=== PATIENT | male | born 1970 | race Caucasian/White ===

== ENCOUNTER 2021-05-28 09:40 | Inpatient (IN) | payer OTHER ==
[2021-05-28] MEDS ORDERED: SODIUM CHLORIDE 0.9% 1,000 ML IV STA (10:09)
[2021-05-28] MEDS ORDERED: AMPICILLIN-SULBACTAM 3 GM in SODIUM CHLORIDE 0.9% 100 ML IVPB STA (10:09)
[2021-05-28] MEDS ORDERED: SODIUM CHLORIDE 0.9% 2,000 ML IV STA (10:09)
--- NOTE | 2021-05-28 10:21 | ED ---
General Adult HPI - General Source: patient, RN notes reviewed Mode of arrival: ambulatory Limitations: no limitations <Jony Casillas - Last Filed: 05/28/21 12:22> <Paige Medina - Last Filed: 05/28/21 23:13> - General Chief complaint: Extremity Injury, Lower Stated complaint: Cellulitis Lower left leg Time Seen by Provider: 05/28/21 10:06 - History of Present Illness Initial comments: 50-year-old male presents to the emergency room for a chief complaint of infection of the left leg. Patient states that prior the past 5 days he has had some numbness of the left leg. States it has been worsening. Patient states it is weeping. He has not had fevers. He went to urgent care today and was sent to the emergency room. He denies any history of diabetes.Patient has no other complaints at this time including shortness of breath, chest pain, abdominal pain, nausea or vomiting, headache, or visual changes. (Joyn Casillas) - Related Data Home Medications Medication Instructions Recorded Confirmed No Known Home Medications 05/28/21 05/28/21 Allergies Allergy/AdvReac Type Severity Reaction Status Date / Time No Known Allergies Allergy Verified 05/28/21 09:48 Review of Systems ROS Other: All systems not noted in ROS Statement are negative. <Jony Casillas - Last Filed: 05/28/21 12:22> ROS Other: All systems not noted in ROS Statement are negative. <Paige Medina - Last Filed: 05/28/21 23:13> ROS Statement: Those systems with pertinent positive or pertinent negative responses have been documented in the HPI. Past Medical History Past Medical History: No Reported History History of Any Multi-Drug Resistant Organisms: None Reported Past Surgical History: No Surgical Hx Reported Past Psychological History: No Psychological Hx Reported Smoking Status: Never smoker Past Alcohol Use History: None Reported, Daily, Occasional Past Drug Use History: None Reported <Jony Casillas - Last Filed: 05/28/21 12:22> General Exam Limitations: no limitations General appearance: alert, in no apparent distress Head exam: Present: atraumatic Eye exam: Present: normal appearance, PERRL, EOMI. Absent: scleral icterus, conjunctival injection ENT exam: Present: normal exam, mucous membranes moist Neck exam: Present: normal inspection, full ROM. Absent: tenderness Respiratory exam: Present: normal lung sounds bilaterally. Absent: respiratory distress, wheezes Cardiovascular Exam: Present: regular rate, normal rhythm, normal heart sounds GI/Abdominal exam: Present: soft, normal bowel sounds. Absent: distended, tenderness Extremities exam: Present: full ROM (Full range of motion of the left lower extremity including hip knee and ankle joint), normal capillary refill (cap refill less than 2 seconds of lower extremity), other (Erythema with some purulent drainage extending from the left ankle up to the left thigh) <Jony Casillas - Last Filed: 05/28/21 12:22> Course Vital Signs 05/28/21 05/28/21 05/28/21 09:49 14:00 20:00 Temperature 99.2 F 99.7 F H 99.0 F Pulse Rate 98 Pulse Rate [ 110 H 89 Pulse Oximetery ] Respiratory 18 18 17 Rate Blood Pressure 187/115 Blood Pressure 182/85 160/71 [Left Arm] O2 Sat by Pulse 96 90 L 93 L Oximetry Medical Decision Making - Lab Data Result diagrams: 05/28/21 09:51 05/28/21 09:51 <Jony Casillas - Last Filed: 05/28/21 12:22> - Lab Data Result diagrams: 05/28/21 09:51 05/28/21 09:51 <Paige Medina - Last Filed: 05/28/21 23:13> - Medical Decision Making vitals are stable. Patient mildly hypertensive, does not have any symptoms. Afebrile. Physical exam reveals a profound cellulitis of the left lower extremity. CBC does show white blood cell count of 10. CMP is unremarkable. Lactic acid is normal. COVID-19 is negative. X-ray shows no abnormalities of the overlying soft tissue or bone. pt was started on Unasyn and vancomycin. Patient will be admitted to Dr. Dhaliwal's group. He does request that Dr. Dent be consulted. (Jony Casillas) I was available for consultation in the emergency department. The history and physical exam were done by the midlevel provider. I was consulted for this patients care. I reviewed the case with the midlevel provider and based on their presentation of the patient, I agree with the assessment, medical decision making and plan of care as documented. Chart was dictated using Perfect dictation software. Attempts were made to correct any dictation errors however some typographical errors may persist. Patient was seen during a national state of emergency due to the Covid-19 pandemic. (Paige Medina) - Lab Data Lab Results 05/28/21 05/28/21 05/28/21 Range/Units 09:51 09:51 09:51 WBC 10.0 (3.8-10.6) k/uL RBC 4.21 L (4.30-5.90) m/uL Hgb 12.1 L (13.0-17.5) gm/dL Hct 39.4 (39.0-53.0) % MCV 93.6 (80.0-100.0) fL MCH 28.6 (25.0-35.0) pg MCHC 30.6 L (31.0-37.0) g/dL RDW 14.2 (11.5-15.5) % Plt Count 390 (150-450) k/uL MPV 7.3 Neutrophils % 77 % Lymphocytes % 15 % Monocytes % 4 % Eosinophils % 2 % Basophils % 1 % Neutrophils # 7.7 (1.3-7.7) k/uL Lymphocytes # 1.5 (1.0-4.8) k/uL Monocytes # 0.4 (0-1.0) k/uL Eosinophils # 0.2 (0-0.7) k/uL Basophils # 0.1 (0-0.2) k/uL Hypochromasia Slight D-Dimer (<0.60) mg/L FEU Sodium 138 (137-145) mmol/L Potassium 4.0 (3.5-5.1) mmol/L Chloride 99 (98-107) mmol/L Carbon Dioxide 32 H (22-30) mmol/L Anion Gap 7 mmol/L BUN 12 (9-20) mg/dL Creatinine 0.92 (0.66-1.25) mg/dL Est GFR (CKD-EPI)AfAm >90 (>60 ml/min/1.73 sqM) Est GFR (CKD-EPI)NonAf >90 (>60 ml/min/1.73 sqM) Glucose 123 H (74-99) mg/dL Plasma Lactic Acid Hai 1.9 (0.7-2.0) mmol/L Calcium 8.4 (8.4-10.2) mg/dL Total Bilirubin 0.5 (0.2-1.3) mg/dL AST 118 H (17-59) U/L ALT 204 H (4-49) U/L Alkaline Phosphatase 159 H (38-126) U/L C-Reactive Protein 25.0 H (<1.0) mg/dL Total Protein 7.2 (6.3-8.2) g/dL Albumin 3.1 L (3.5-5.0) g/dL Coronavirus (PCR) (Not Detectd) 05/28/21 05/28/21 Range/Units 10:20 12:41 WBC (3.8-10.6) k/uL RBC (4.30-5.90) m/uL Hgb (13.0-17.5) gm/dL Hct (39.0-53.0) % MCV (80.0-100.0) fL MCH (25.0-35.0) pg MCHC (31.0-37.0) g/dL RDW (11.5-15.5) % Plt Count (150-450) k/uL MPV Neutrophils % % Lymphocytes % % Monocytes % % Eosinophils % % Basophils % % Neutrophils # (1.3-7.7) k/uL Lymphocytes # (1.0-4.8) k/uL Monocytes # (0-1.0) k/uL Eosinophils # (0-0.7) k/uL Basophils # (0-0.2) k/uL Hypochromasia D-Dimer 1.68 H (<0.60) mg/L FEU Sodium (137-145) mmol/L Potassium (3.5-5.1) mmol/L Chloride (98-107) mmol/L Carbon Dioxide (22-30) mmol/L Anion Gap mmol/L BUN (9-20) mg/dL Creatinine (0.66-1.25) mg/dL Est GFR (CKD-EPI)AfAm (>60 ml/min/1.73 sqM) Est GFR (CKD-EPI)NonAf (>60 ml/min/1.73 sqM) Glucose (74-99) mg/dL Plasma Lactic Acid Hai (0.7-2.0) mmol/L Calcium (8.4-10.2) mg/dL Total Bilirubin (0.2-1.3) mg/dL AST (17-59) U/L ALT (4-49) U/L Alkaline Phosphatase (38-126) U/L C-Reactive Protein (<1.0) mg/dL Total Protein (6.3-8.2) g/dL Albumin (3.5-5.0) g/dL Coronavirus (PCR) Not Detected (Not Detectd) Disposition Is patient prescribed a controlled substance at d/c from ED?: No Time of Disposition: 12:24 <Jony Casillas P - Last Filed: 05/28/21 12:22> <Paige Medina - Last Filed: 05/28/21 23:13> Clinical Impression: Cellulitis, Transaminitis, Elevated C-reactive protein (CRP) Disposition: ADMITTED IP TO THIS HOSP
[2021-05-28 10:32] LABS: Basophils # (A) 0.1 k/uL (0-0.2); Basophils % (A) 1 %; Eosinophils # (A) 0.2 k/uL (0-0.7); Eosinophils % (A) 2 %; HCT 39.4 % (39.0-53.0); HGB 12.1 gm/dL (13.0-17.5); Hypochromasia Slight; Lymphocytes # (A) 1.5 k/uL (1.0-4.8); Lymphocytes % (A) 15 %; MCH 28.6 pg (25.0-35.0); MCHC 30.6 g/dL (31.0-37.0); MCV 93.6 fL (80.0-100.0); Mean Platelet Volume 7.3; Monocytes # (A) 0.4 k/uL (0-1.0); Monocytes % (A) 4 %; Neutrophils # (A) 7.7 k/uL (1.3-7.7); Neutrophils % (A) 77 %; Platelet Count 390 k/uL (150-450); RBC 4.21 m/uL (4.30-5.90); RDW 14.2 % (11.5-15.5)
[2021-05-28 11:05] LABS: ALT 204 U/L (4-49); AST 118 U/L (17-59); African American GFR (CKD) >90 (>60 ml/min/1.73 sqM); Albumin 3.1 g/dL (3.5-5.0); Alkaline Phosphatase 159 U/L (38-126); Anion Gap 7 mmol/L; Blood Urea Nitrogen 12 mg/dL (9-20); Calcium 8.4 mg/dL (8.4-10.2); Carbon Dioxide 32 mmol/L (22-30); Chloride 99 mmol/L (98-107); Glucose 123 mg/dL (74-99); Non-African American GFR(CKD) >90 (>60 ml/min/1.73 sqM); Sodium 138 mmol/L (137-145); Total Bilirubin 0.5 mg/dL (0.2-1.3); Total Protein 7.2 g/dL (6.3-8.2)
--- NOTE | 2021-05-28 11:14 | XR ---
EXAMINATION TYPE: XR tibia fibula LT DATE OF EXAM: 05/28/2021 CLINICAL HISTORY: pain TECHNIQUE: AP and lateral images of the left tibia and fibula are obtained. COMPARISON: None. FINDINGS: There is no acute fracture/dislocation evident. The joint spaces appear within normal cummins its. Soft tissue edema may reflect underlying cellulitis. No radiopaque foreign body identified. IMPRESSION: There is no acute fracture or dislocation seen. ICD 10 NO FRACTURE, INITIAL EVALUATION
--- NOTE | 2021-05-28 11:15 | XR ---
EXAMINATION TYPE: XR femur LT DATE OF EXAM: 05/28/2021 CLINICAL HISTORY: pain TECHNIQUE: Two views of the left femur are obtained. COMPARISON: None. FINDINGS: There is no acute fracture or dislocation seen of the femur. The hip and knee joints mariela ear narrowed. The overlying soft tissue appears unremarkable. IMPRESSION: There is no acute fracture or dislocation seen of the femur. ICD 10 NO FRACTURE, INITIAL EVALUATION
[2021-05-28] MEDS ORDERED: ACETAMINOPHEN TAB 325 MG TAB PO PRN (12:24)
[2021-05-28] MEDS ORDERED: NALOXONE 0.4 MG/ML 1 ML VIAL IV PRN (12:24)
[2021-05-28] MEDS ORDERED: VANCOMYCIN IV PER PHARMACY 1 EACH MISC MISCELLANE PRN (12:25)
[2021-05-28] MEDS ORDERED: VANCOMYCIN 2,500 MG in SODIUM CHLORIDE 0.9% 500 ML 500 ML IVPB STA (12:30)
--- NOTE | 2021-05-28 13:14 | US ---
EXAMINATION TYPE: US venous doppler duplex LE DATE OF EXAM: 05/28/2021 1:05 PM COMPARISON: NONE CLINICAL HISTORY: redness, pain, swelling. Severe redness left leg SIDE PERFORMED: Bilateral TECHNIQUE: The lower extremity deep venous system is examined utilizing real time linear array sonog reilly with graded compression, doppler sonography and color-flow sonography. VESSELS IMAGED: Common Femoral Vein Deep Femoral Vein Greater Saphenous Vein * Femoral Vein Popliteal Vein Small Saphenous Vein * Proximal Calf Veins (* superficial vessels) Very limited due to body habitus, Left Distal Femoral Vein and left prox pop vein not visualized. Right Leg: Negative for DVT Left Leg: No obvious DVT seen IMPRESSION: No evidence of DVT at this time.
--- NOTE | 2021-05-28 13:39 | P.GSCN ---
History of Present Illness Consult date: 05/28/21 History of present illness: Shakir is a 50-year-old morbidly obese male who presents to the ER with left lower extremity pain cellulitic changes. 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 He said he woke up the next day with some increasing redness of his left leg and has progressively gotten worse since then he presents for this. He denies any fevers, chills, nausea, vomiting or issues otherwise. He denies any issues like this in the past. He denies any lower extremity pain or difficulty with ambulation prior to the onset of this Past Medical History Past Medical History: No Reported History History of Any Multi-Drug Resistant Organisms: None Reported Past Surgical History: No Surgical Hx Reported Past Psychological History: No Psychological Hx Reported Smoking Status: Never smoker Past Alcohol Use History: None Reported, Daily, Occasional Past Drug Use History: None Reported Medications and Allergies Home Medications Medication Instructions Recorded Confirmed Type No Known Home Medications 05/28/21 05/28/21 History Allergies Allergy/AdvReac Type Severity Reaction Status Date / Time No Known Allergies Allergy Verified 05/28/21 09:48 Surgical - Exam Vital Signs Temp Pulse Resp BP Pulse Ox 99.2 F 98 18 187/115 96 05/28/21 09:49 05/28/21 09:49 05/28/21 09:49 05/28/21 09:49 05/28/21 09:49 Gen. is a pleasant cooperative supermorbidly obese male. HEENT is normal cephalic, atraumatic, extraocular motion intact. Heart appears regular but distant. Lungs are clear bilaterally although diminished. Abdomen is soft obese nontender nondistended. Extremity show no clubbing or cyanosis. Left low er extremity has significant erythema and cellulitic changes from essentially the hip down to the foot worse on the medial side. There is some serous- appearing drainage. No fluctuance. No areas of obvious abscess. Difficult to palpate pulses due to patient's body habitus. Bilateral lower extremities are warm and dry. Normal capillary refill. Motor sensory intact Results ultrasound is reviewed. No obvious evidence of DVT. Limited exam due to body habitus - Labs 05/28/21 09:51 05/28/21 09:51 Abnormal Lab Results - Last 24 Hours (Table) 12/30/21 12/30/21 Range/Units 09:51 09:51 RBC 4.21 L (4.30-5.90) m/uL Hgb 12.1 L (13.0-17.5) gm/dL MCHC 30.6 L (31.0-37.0) g/dL Carbon Dioxide 32 H (22-30) mmol/L Glucose 123 H (74-99) mg/dL AST 118 H (17-59) U/L ALT 204 H (4-49) U/L Alkaline Phosphatase 159 H (38-126) U/L C-Reactive Protein 25.0 H (<1.0) mg/dL Albumin 3.1 L (3.5-5.0) g/dL Diabetes panel 05/28/21 Range/Units 09:51 Sodium 138 (137-145) mmol/L Potassium 4.0 (3.5-5.1) mmol/L Chloride 99 (98-107) mmol/L Carbon Dioxide 32 H (22-30) mmol/L BUN 12 (9-20) mg/dL Creatinine 0.92 (0.66-1.25) mg/dL Glucose 123 H (74-99) mg/dL Calcium 8.4 (8.4-10.2) mg/dL AST 118 H (17-59) U/L ALT 204 H (4-49) U/L Alkaline Phosphatase 159 H (38-126) U/L Total Protein 7.2 (6.3-8.2) g/dL Albumin 3.1 L (3.5-5.0) g/dL Calcium panel 05/28/21 Range/Units 09:51 Calcium 8.4 (8.4-10.2) mg/dL Albumin 3.1 L (3.5-5.0) g/dL Pituitary panel 05/28/21 Range/Units 09:51 Sodium 138 (137-145) mmol/L Potassium 4.0 (3.5-5.1) mmol/L Chloride 99 (98-107) mmol/L Carbon Dioxide 32 H (22-30) mmol/L BUN 12 (9-20) mg/dL Creatinine 0.92 (0.66-1.25) mg/dL Glucose 123 H (74-99) mg/dL Calcium 8.4 (8.4-10.2) mg/dL Adrenal panel 05/28/21 Range/Units 09:51 Sodium 138 (137-145) mmol/L Potassium 4.0 (3.5-5.1) mmol/L Chloride 99 (98-107) mmol/L Carbon Dioxide 32 H (22-30) mmol/L BUN 12 (9-20) mg/dL Creatinine 0.92 (0.66-1.25) mg/dL Glucose 123 H (74-99) mg/dL Calcium 8.4 (8.4-10.2) mg/dL Total Bilirubin 0.5 (0.2-1.3) mg/dL AST 118 H (17-59) U/L ALT 204 H (4-49) U/L Alkaline Phosphatase 159 H (38-126) U/L Total Protein 7.2 (6.3-8.2) g/dL Albumin 3.1 L (3.5-5.0) g/dL Assessment and Plan Assessment: Significant left lower extremity cellulitis Supramorbid obesity Plan: At this time and does not appear to be any drainable abscess or surgical intervention necessitated. We'll defer to infectious disease regarding antibiotics. Would consider a topical Silvadene or gentamicin cream as well. Elevate lower extremities.
[2021-05-28] MEDS ORDERED: HYDROmorphone 0.5 MG/0.5 ML SYRINGE IVP PRN (15:24)
[2021-05-28] MEDS ORDERED: PIPERACILLIN-TAZOBACTAM 3.375 GM in SODIUM CHLORIDE 0.9% 100 ML IVPB SCH ×4 (16:00)
[2021-05-28 17:00] LABS: Appearance,Urine Clear (Clear); Bilirubin,Urine Negative (Negative); Blood,Urine Negative (Negative); Color,Urine Yellow; Glucose,Urine (UA) Negative (Negative); Ketones,Urine 2+ (Negative); Leukocyte Esterase,Urine Negative (Negative); Mucus,Urine Rare /hpf; Nitrite,Urine Negative (Negative); PH, Urine 6.5 (5.0-8.0); Protein,Urine 1+ (Negative); RBC,Urine 7 /hpf (0-5); Specific Gravity,Urine 1.045 (1.001-1.035); Squamous Epithelial Cell,Urine 1 /hpf (0-4); WBC,Urine 2 /hpf (0-5)
[2021-05-28] MEDS ORDERED: AMPICILLIN-SULBACTAM 3 GM in SODIUM CHLORIDE 0.9% 100 ML IVPB SCH (17:00)
[2021-05-28 17:03] LABS: Amphetamine Screen,Urine Not Detected (NotDetected); Barbiturate Screen,Urine Not Detected (NotDetected); Benzodiazepines Screen,Urine Not Detected (NotDetected); Cocaine Screen,Urine Not Detected (NotDetected); Methadone Screen, Urine Not Detected (NotDetected); Opiate Screen,Urine Not Detected (NotDetected); Oxycodone Screen, Urine Not Detected (NotDetected); Phencyclidine Screen,Urine Not Detected (NotDetected); Tricyclic Antidepressant,Urine Not Detected (NotDetected); Urn Cannabinoid Scrn Not Detected (NotDetected)
[2021-05-28] MEDS: HEPARIN SODIUM,PORCINE/PF 5,000 UNIT/0.5 ML SYRINGE SQ SCH ×2 (17:04→23:03)
--- NOTE | 2021-05-28 17:38 | HP ---
HISTORY AND PHYSICAL CHIEF COMPLAINTS: Pain and swelling of the left leg and significant cellulitis. HISTORY OF PRESENT ILLNESS: This 50-year-old gentleman without significant past medical history, only history of back pain and not being followed by any primary physician, patient is complaining of pain and swelling and discharge of the left leg for the last 2 days. The patient is extremely obese. Otherwise, there is no history of any headache, loss of consciousness, seizures. The patient apparently was wearing some tights socks and shopping for [place]. The left leg is also slightly cold at this time. There is no history of fever, rigors, chills at this time. PAST MEDICAL HISTORY: History of back pain. MEDICATIONS: Home medications are none. ALLERGIES: None. FAMILY HISTORY: History of CHF, hypertension, hyperlipidemia, history of in the family. SOCIAL HISTORY: No history of smoking. No history of alcohol. REVIEW OF SYSTEMS: ENT: No diminished vision. No diminished hearing. CARDIOVASCULAR system: No angina or palpitations. RESPIRATIONS: No cough. GI as mentioned earlier. : No dysuria. NERVOUS SYSTEM: No numbness or weakness. ALLERGY/IMMUNOLOGY: No asthma or hayfever. MUSCULOSKELETAL as mentioned earlier. HEMATOLOGY/ONCOLOGY: No history of anemia. ENDOCRINE: No history of diabetes or hypothyroidism. CONSTITUTIONAL: As mentioned earlier. DERMATOLOGY as mentioned earlier. RHEUMATOLOGY: Negative. PSYCHIATRIC: As mentioned. PHYSICAL EXAMINATION: Alert and oriented times three. Pulse is 98. Blood pressure 170/115, respiration 18, temperature 99.2, pulse ox 97% on room air. HEENT: Conjunctivae normal. NECK: No JVD. CARDIOVASCULAR: S1, S2 muffled. RESPIRATION: Breath sounds diminished in the bases. A few scattered rhonchi. ABDOMEN: Soft, obese. Nontender. No mass palpable. LEGS: Significant pain and swelling and erythema, exudation. Denudation of the left lower leg extending to the medial part of the left thigh also present. NERVOUS SYSTEM: Higher functions as mentioned. Moves all four limbs. No focal motor or sensory deficits. LYMPHATICS: No lymph nodes palpable in the neck, axillae or groin. SKIN: No ulcer, no rash and no bleeding. JOINTS: No active deforming arthropathy. LABS: Hemoglobin 12.1. D-dimer is 1.68. AST is 118, ALT is 204, CRP is 25, albumin 3.2. ASSESSMENT: 1. Extensive cellulitis of the left leg with possible early sepsis, present on admission. 2. Elevated . 3. Acute hepatitis possibly secondary to sepsis. 4. Elevated CRP. 5. Elevated D-dimer. 6. Mild anemia of chronic disease. 7. Super morbid obesity. 8. History of back pain. 9. FULL CODE. RECOMMENDATIONS AND DISCUSSION: This 50-year-old gentleman presented with multiple complex medical issues, we will monitor the patient closely, continue the current medications, management and symptomatic treatment. We will initiate broad-spectrum IV antibiotics. Obtain cultures. Infectious disease evaluation. Vascular surgery evaluation. Overall prognosis guarded because of multiple complex medical issues. Further recommendations to follow. I would also recommend ultrasound of the leg to rule out the possibility of any DVT. CT angio chest also will be in order because of the elevated D-dimer. Overall prognosis guarded. Further recommendations to follow. Room air pulse ox is 96, and Covid 19 was negative also. I also recommend the patient follow up with primary physician closely after discharge as well. MMBEVERLEYL / IJN: [id number] / MADDY
--- NOTE | 2021-05-28 18:05 | CT ---
EXAMINATION TYPE: CT chest angio for PE DATE OF EXAM: 05/28/2021 COMPARISON: None HISTORY: 50 year-old male shortness of breath, Elevated d-dimer. TECHNIQUE: Contiguous axial scanning of the chest performed with IV Contrast, patient injected with 1 00 mL of Isovue 370. Coronal/sagittal MIP reconstructions performed. CT DLP: 1095.4 mGycm Automated exposure control for dose reduction was used. FINDINGS: The heart is mildly moderately enlarged. No pericardial effusion. Prominent epicardial fat pad. No fl attening of the interventricular septum or reflux of contrast into the hepatic veins. Aneurysmal ascending aorta 4.2 cm. Conventional arch vessel branching anatomy. Large caliber to the main right and left pulmonary arteries and 2.8 and 2.5 cm, respectively, suggest ing underlying pulmonary artery hypertension. There is both suboptimal contrast bolus and breathing motion artifact and excessive Walbridge's artifact from patient's large body habitus. This degrades assessment for pulmonary embolus. No large central pulmonary embolus is seen. No definite lobar branch pulmonary embolus. Most of the segmental and more distal arterial branches are nondiagnostic and emboli in these locations cannot be adequately exclud ed on the basis of this exam. No thoracic lymphadenopathy by CT size criteria. There is some mosaic attenuation noted suggesting areas of air trapping. No annelise consolidation or pl eural effusion. Low-attenuation of the hepatic parenchyma compatible with fatty infiltration. Gallbladder is mildly h ydropic and 4.4 cm wide but without any surrounding inflammation. Bones: Multilevel moderate degenerative disc disease throughout the thoracic spine. No osseous destru ctive process. IMPRESSION: 1. THERE IS SUBOPTIMAL CONTRAST BOLUS, ARTIFACT FROM LARGE BODY HABITUS, AND BREATHING MOTION DEGRADI NG ASSESSMENT FOR PULMONARY EMBOLUS. NO LARGE CENTRAL OR DEFINITE LOBAR BRANCH PULMONARY EMBOLUS. MOS T OF THE SEGMENTAL AND MORE DISTAL ARTERIAL BRANCHES ARE NONDIAGNOSTIC AN EMBOLI IN THESE LOCATIONS C ANNOT BE EXCLUDED ON THE BASIS OF THIS EXAM. 2. CARDIOMEGALY AND PULMONARY ARTERIAL HYPERTENSION. 3. MOSAIC ATTENUATION WITHIN THE LUNGS MAY BE SEEN WITH AIR TRAPPING FROM SMALL AIRWAYS DISEASE. 4. ANEURYSMAL ASCENDING AORTA AT 4.2 CM. 5. HEPATIC STEATOSIS.
[2021-05-28] MEDS ORDERED: VANCOMYCIN 2,500 MG in SODIUM CHLORIDE 0.9% 500 ML 500 ML IVPB SCH (21:00)
[2021-05-28] MEDS: ceFAZolin 3 GM in SODIUM CHLORIDE 0.9% 100 ML IVPB SCH (23:02)
[2021-05-29] MEDS: HYDROcodone/APAP 5-325MG 1 EACH TAB PO PRN (04:59)
[2021-05-29] MEDS: HEPARIN SODIUM,PORCINE/PF 5,000 UNIT/0.5 ML SYRINGE SQ SCH ×2 (08:48→15:48)
[2021-05-29] MEDS: ceFAZolin 3 GM in SODIUM CHLORIDE 0.9% 100 ML IVPB SCH ×2 (08:48→15:48)
[2021-05-29] MEDS: PANTOPRAZOLE 40 MG TABLET PO SCH (08:49)
[2021-05-29 09:39] LABS: African American GFR (CKD) 128.4 (60.0-200.0); Albumin 2.9 g/dL (3.8-4.9); Albumin/Globulin Ratio 0.81 (1.60-3.17); Anion Gap 11.8 mmol/L (10.00-18.00); BUN/Creat Ratio 12.14 Ratio (12.00-20.00); Blood Urea Nitrogen 8.5 mg/dL (9.0-27.0); Calcium 7.9 mg/dL (8.7-10.3); Carbon Dioxide 26.2 mmol/L (20.0-27.5); Globulin 3.6 g/dL (1.6-3.3); Non-African American GFR(CKD) 110.8 (60.0-200.0); Potassium 4.6 mmol/L (3.5-5.5); Total Bilirubin 0.3 mg/dL (0.30-1.20); Total Protein 6.5 g/dL (6.2-8.2)
[2021-05-29 09:47] LABS: HCT 36.8 % (39.6-50.0); HGB 11.1 g/dL (13.0-17.0); MCH 28.3 pg (27.0-32.0); MCHC 30.2 g/dL (32.0-37.0); MCV 93.9 fL (80.0-97.0); Mean Platelet Volume 9.5 fL (9.5-12.2); Platelet Count 364 X 10*3/uL (140-440); RBC 3.92 X 10*6/uL (4.40-5.60); RDW 15.2 % (11.5-14.5); WBC 8.38 X 10*3/uL (4.50-10.00)
--- NOTE | 2021-05-29 10:09 | P.CONS ---
History of Present Illness - Reason for Consult Consult date: 05/28/21 left leg cellulitis Requesting physician: Inessa Dhaliwal - Chief Complaint left leg swelling x 5 days - History of Present Illness History of present illness : Patient is a 50-year male presenting to the ER for evaluation of left lower extremity swelling and redness in this patient symptom has been going on since patient noticed to have a diffuse swelling and redness to the left leg is also complaining of pain more of a dull aching to sharp 5-6 over 10 no radiation patient denies high-grade fever though he did have significant weeping from his left leg patient went to the urgent care today and subsequently has been referred to the ER for further ev aluation and treatment patient on presentation to the hospital did have low- grade fever of 99.7 F mildly hypoxic and tachycardic patient did have a normal white count kidney function has been normal liver enzymes are elevated urine has been negative urine toxin was negative gudino PCR was negative patient did have x-rays of the left tibia and fibula no fracture or dislocation is seen patient did have a venous Doppler study no obvious DVT seen he also have a CT angiogram of the chest suboptimal contrast no evidence of any pneumonia patient was started on vancomycin has been admitted to hospital infectious disease was consulted for further management of antibiotic therapy Review of system: CONSTITUTIONAL: Positive for weakness denies high-grade fever. EYES: No complaint. ENT: No complaint. RESPIRATORY: No complaint. CARDIOVASCULAR: No complaint. GENITOURINARY: No complaint. GASTROINTESTINAL: No complaint. MUSCULOSKELETAL: No complaint. INTEGUMENTARY: As per history of present illness. PSYCHOLOGIC: No complaint. ENDOCRINE: No complaint. NEUROLOGIC: No complaint. Past medical history : Reviewed, documented below Past surgical history : Reviewed, documented below Social history: Reviewed, documented below Medications: Reviewed, as documented below EXAMINATION: Vital sigans= Reviewed and documented below GENERAL DESCRIPTION: Middle-aged male lying in bed, no distress. No tachypnea or accessory muscle of respiration use. HEENT: Shows Pallor , no scleral icterus. Oral mucous membrane is dry. NECK: Trachea central, no thyromegaly. LUNGS: Unlabored breathing. Clear to auscultation anteriorly. No wheeze or crackle. HEART: S1, S2, regular rate and rhythm. ABDOMEN: Soft, no tenderness , guarding or rigidity EXTREMITIES: Extensive swelling redness to the left leg with weeping edema. SKIN: No rash, no masses palpable. NEUROLOGICAL: The patient is awake, alert, oriented x3, mood and affect normal. LABS AND RADIOLOGY: Reviewed results see below Assessment : Patient is in the hospital with extensive left lower extremity swelling and redness with evidence of extensive cellulitis likely from gram- positive skin cordelia in this patient who has not been on antibiotics in the recent past could be strep less likely MRSA or gram-negative infection Plan: 1-discontinue vancomycin 2-cefazolin 3 g every 8 hour 3-local wound care with dry Aquacel silver dressing to the blistered area followed by Liban wrap from distal bilateral to below the knee this was explained to the patient RN We will follow on clinical condition and cultures to further adjust medication if needed Thank you for this consultation we will follow the patient along with you Past Medical History Past Medical History: No Reported History Additional Past Medical History / Comment(s): Back pain History of Any Multi-Drug Resistant Organisms: None Reported Past Surgical History: No Surgical Hx Reported Additional Past Surgical History / Comment(s): "tubes in my ear" as a child. Past Anesthesia/Blood Transfusion Reactions: No Reported Reaction Smoking Status: Never smoker - Past Family History Father Family Medical History: Congestive Heart Failure (CHF), Hyperlipidemia, Hypertension, Skin Disorder Additional Family Medical History / Comment(s): Cellulitis Mother Additional Family Medical History / Comment(s): Mother has a hernia. Medications and Allergies Home Medications Medication Instructions Recorded Confirmed Type No Known Home Medications 05/28/21 05/28/21 History Allergies Allergy/AdvReac Type Severity Reaction Status Date / Time No Known Allergies Allergy Verified 05/28/21 09:48 Physical Exam Vitals: Vital Signs Temp Pulse Pulse Resp BP BP Pulse Ox 05/28/21 20:00 99.0 F 89 17 160/71 93 L 05/28/21 14:00 99.7 F H 110 H 18 182/85 90 L 05/28/21 09:49 99.2 F 98 18 187/115 96 Intake and Output 05/28/21 05/28/21 05/28/21 06:59 14:59 22:59 Output Total 400 Balance -400 Output: Urine 400 Other: Weight 215.456 kg 215.456 kg Results CBC & Chem 7: 05/29/21 05:47 05/29/21 05:47 Labs: Abnormal Lab Results - Last 24 Hours (Table) 05/28/21 05/28/21 05/28/21 Range/Units 09:51 09:51 12:41 RBC 4.21 L (4.30-5.90) m/uL Hgb 12.1 L (13.0-17.5) gm/dL MCHC 30.6 L (31.0-37.0) g/dL D-Dimer 1.68 H (<0.60) mg/L FEU Carbon Dioxide 32 H (22-30) mmol/L Glucose 123 H (74-99) mg/dL AST 118 H (17-59) U/L ALT 204 H (4-49) U/L Alkaline Phosphatase 159 H (38-126) U/L C-Reactive Protein 25.0 H (<1.0) mg/dL Albumin 3.1 L (3.5-5.0) g/dL Ur Specific [place] (1.001-1.035) Urine Protein (Negative) Urine Ketones (Negative) Urine RBC (0-5) /hpf Urine Mucus (None) /hpf 05/28/21 Range/Units 16:25 RBC (4.30-5.90) m/uL Hgb (13.0-17.5) gm/dL MCHC (31.0-37.0) g/dL D-Dimer (<0.60) mg/L FEU Carbon Dioxide (22-30) mmol/L Glucose (74-99) mg/dL AST (17-59) U/L ALT (4-49) U/L Alkaline Phosphatase (38-126) U/L C-Reactive Protein (<1.0) mg/dL Albumin (3.5-5.0) g/dL Ur Specific [place] 1.045 H (1.001-1.035) Urine Protein 1+ H (Negative) Urine Ketones 2+ H (Negative) Urine RBC 7 H (0-5) /hpf Urine Mucus Rare H (None) /hpf
[2021-05-29 11:13] LABS: Basophils # (M) 0.08 X 10*3/uL (0.00-0.10); Eosinophils # (M) 0.08 X 10*3/uL (0.04-0.35); Lymphocytes # (M) 0.92 X 10*3/uL (0.90-5.00); Metamyelocytes % 3 % (0-0); Monocytes # (M) 0.42 X 10*3/uL (0.20-1.00); Myelocytes % 1 % (0-0); Neutrophils # (M) 6.54 X 10*3/uL (2.00-8.90); Neutrophils % (M) 78 %
--- NOTE | 2021-05-29 13:11 | P.PN ---
Subjective Progress Note Date: 05/29/21 Patient seen and examined. No issues. States his legs are feeling better overall Objective - Vital Signs Vital signs: Vital Signs Temp 98.2 F 05/29/21 07:41 Pulse 90 05/29/21 07:41 Resp 18 05/29/21 07:41 BP 170/75 05/29/21 07:41 Pulse Ox 93 L 05/29/21 07:41 Intake & Output 05/28/21 05/29/21 05/29/21 18:59 06:59 18:59 Intake Total 110 Output Total 400 350 Balance -400 -240 Weight 215.456 kg Intake: Oral 110 Output: Urine 400 350 Other: Voiding Method Toilet Urinal # Voids 1 # Bowel Movements 0 - Exam Gen. is a pleasant cooperative morbidly obese male in no acute distress. Resting in bed comfortably. HEENT is normocephalic, atraumatic, extraocular motion intact. Heart appears regular. Lungs diminished. No respiratory distress. Abdomen is obese. Extremity show no clubbing, cyanosis. There is mo derate edema bilaterally. Previously erythema up into the thigh is slightly improved. Still areas of serous drainage in the lower extremities. - Labs CBC & Chem 7: 05/29/21 05:47 05/29/21 05:47 Labs: Abnormal Lab Results - Last 24 Hours (Table) 05/28/21 05/28/21 05/29/21 Range/Units 12:41 16:25 05:47 RBC 3.92 L (4.40-5.60) X 10*6/uL Hgb 11.1 L (13.0-17.0) g/dL Hct 36.8 L (39.6-50.0) % MCHC 30.2 L (32.0-37.0) g/dL RDW 15.2 H (11.5-14.5) % Metamyelocytes % 3 H (0-0) % Myelocytes % 1 H (0-0) % D-Dimer 1.68 H (<0.60) mg/L FEU BUN (9.0-27.0) mg/dL Glucose (70-110) mg/dL Calcium (8.7-10.3) mg/dL AST (14-35) U/L ALT (10-49) U/L Albumin (3.8-4.9) g/dL Globulin (1.6-3.3) g/dL Albumin/Globulin Ratio (1.60-3.17) g/dL Ur Specific [place] 1.045 H (1.001-1.035) Urine Protein 1+ H (Negative) Urine Ketones 2+ H (Negative) Urine RBC 7 H (0-5) /hpf Urine Mucus Rare H (None) /hpf 05/29/21 Range/Units 05:47 RBC (4.40-5.60) X 10*6/uL Hgb (13.0-17.0) g/dL Hct (39.6-50.0) % MCHC (32.0-37.0) g/dL RDW (11.5-14.5) % Metamyelocytes % (0-0) % Myelocytes % (0-0) % D-Dimer (<0.60) mg/L FEU BUN 8.5 L (9.0-27.0) mg/dL Glucose 139 H (70-110) mg/dL Calcium 7.9 L (8.7-10.3) mg/dL AST 75 H (14-35) U/L ALT 151 H (10-49) U/L Albumin 2.9 L (3.8-4.9) g/dL Globulin 3.6 H (1.6-3.3) g/dL Albumin/Globulin Ratio 0.81 L (1.60-3.17) g/dL Ur Specific [place] (1.001-1.035) Urine Protein (Negative) Urine Ketones (Negative) Urine RBC (0-5) /hpf Urine Mucus (None) /hpf Microbiology - Last 24 Hours (Table) 05/28/21 10:08 Blood Culture - Preliminary Blood No Growth after 24 hours 05/28/21 09:51 Blood Culture - Preliminary Blood No Growth after 24 hours Assessment and Plan Assessment: Significant left lower extremity cellulitis Supramorbid obesity Plan: At this point the patient appears to be improving. Continue local wound care, compression and elevation of the lower extremities. No further plans for vascular surgical intervention and therefore we will sign off at this time. Please let us be of further assistance
[2021-05-29] MEDS ORDERED: ALPRAZolam 0.25 MG TAB PO PRN (17:52)
[2021-05-29] MEDS: amLODIPine 10 MG TAB PO SCH (18:10)
--- NOTE | 2021-05-29 18:56 | PN ---
PROGRESS NOTE DATE OF SERVICE: 05/29/2021 This 50-year-old gentleman who was admitted with extensive cellulitis of the left leg is being closely monitored. No chest pain. No palpitations. No fever. Cultures are negative so far. PHYSICAL EXAMINATION: Alert and oriented x3. Pulse 90, blood pressure 184/80, respiration 20, temperature is 99.1, pulse ox 92% on room air. HEENT: Conjunctivae normal. Oral mucosa moist. NECK: No jugular venous distention. No lymph node enlargement. CARDIOVASCULAR: S1, S2, muffled. No S3, no S4, RESPIRATORY: Diminished breath sounds at the bases. A few scattered rhonchi. ABDOMEN: Soft, nontender. LEGS: Bilateral leg swelling and extensive left leg cellulitis, excoriation, discharge and erythema present. LABS: WBC 8.1, hemoglobin 11.1, D-dimer is 1.68. ASSESSMENT: 1. Extensive cellulitis of the left leg with possible early sepsis, present on admission. 2. Elevated D-dimer. 3. Acute hepatitis possibly secondary to sepsis. 4. Elevated CRP. 5. Mild anemia of chronic disease. 6. Super morbid obesity. 7. History of back pain. 8. Hypertension. 9. Aneurysmal ascending aorta of 4.2 cm. 10.Hepatic steatosis. RECOMMENDATIONS AND DISCUSSION: Recommend to continue current management and symptomatic treatment. Continue the antibiotics. Follow the cultures. The venous Doppler was done which showed no evidence of any DVT. The chest CTA was also done which I reviewed personally, showed suboptimal contrast, no significant pulmonary embolism, ascending aortic aneurysm at 4.2 cm. We will add Norvasc to the current regimen. MMODL / IJN: [id number] /
[2021-05-30] MEDS: ceFAZolin 3 GM in SODIUM CHLORIDE 0.9% 100 ML IVPB SCH ×3 (00:18→15:48)
[2021-05-30] MEDS: HEPARIN SODIUM,PORCINE/PF 5,000 UNIT/0.5 ML SYRINGE SQ SCH ×3 (00:19→15:47)
--- NOTE | 2021-05-30 00:48 | PN ---
PROGRESS NOTE DATE OF SERVICE: 05/29/2021 REASON FOR FOLLOWUP: Left lower extremity cellulitis. INTERVAL HISTORY: Patient is afebrile. He is breathing comfortably. Overall pain and discomfort to the left leg is slightly decreased. No chest pain, shortness of breath or cough. No abdominal pain. No diarrhea. PHYSICAL EXAMINATION: Blood pressure 172/84, pulse of 90, temperature 98.5. He is 92% on room air. General description is a middle-aged male lying in bed in no distress. Respiratory system: Unlabored breathing, clear to auscultation anteriorly. Heart S1, S2. Regular rate and rhythm. Abdomen soft. No tenderness. Left leg swelling and redness has slightly decreased. LABS: Hemoglobin is 11.1, white count 8.38, creatinine 0.7. DIAGNOSTIC IMPRESSION AND PLAN: Patient with extensive left lower extremity cellulitis with diffuse swelling and redness, likely streptococcal disease. Patient to continue cefazolin 3 g q8 along with local wound care with Aquacel Silver dressing and Liban wrap and continue supportive care. MMODL / IJN: [id number] /
[2021-05-30] MEDS: HYDROcodone/APAP 5-325MG 1 EACH TAB PO PRN (01:08)
[2021-05-30] MEDS: amLODIPine 10 MG TAB PO SCH (09:05)
[2021-05-30] MEDS: PANTOPRAZOLE 40 MG TABLET PO SCH (09:05)
--- NOTE | 2021-05-30 18:52 | PN ---
PROGRESS NOTE DATE OF SERVICE: 05/30/2021 This 50-year-old gentleman admitted with significant cellulitis of the left leg is being closely monitored. The cultures are negative so far. Patient is on empiric antibiotics. No chest pain. No palpitations. No fever. PHYSICAL EXAMINATION: Alert and oriented x3. Pulse 98, blood pressure 140/78, respiration 18, temperature 98.3, pulse ox 97% on room air. HEENT: Conjunctivae normal. Oral mucosa moist. NECK: No jugular venous distention. No lymph node enlargement. CARDIOVASCULAR: S1, S2, muffled. No S3, no S4, RESPIRATORY: Diminished breath sounds at the bases. No rhonchi, no crackles. ABDOMEN: Soft, nontender. LEGS: Significant left thigh infection present. NERVOUS SYSTEM: No focal deficits. LABS: WBC 8.3, hemoglobin 11.1, sodium 136, potassium 4.6. D-dimer is 1.68. ASSESSMENT: 1. Extensive cellulitis of the left leg with possible early sepsis, present on admission. 2. Elevated D-dimer. 3. Acute hepatitis possibly secondary to sepsis. 4. Elevated CRP. 5. Mild anemia of chronic disease. 6. Super morbid obesity. 7. History of back pain. 8. Hypertension. 9. Aneurysmal ascending aorta 4.2 cm. 10.Hepatic steatosis. RECOMMENDATIONS AND DISCUSSION: Recommend to continue current management ,continue symptomatic treatment. Continue local treatment. Continue the IV antibiotics. Closely follow with Infectious Disease. Guarded prognosis. Further recommendations to follow. MMODL / IJN: [id number] /
--- NOTE | 2021-05-30 20:55 | PN ---
PROGRESS NOTE DATE OF SERVICE: 05/30/2021 REASON FOR FOLLOWUP: Left lower extremity cellulitis. INTERVAL HISTORY: The patient is afebrile. The patient is breathing comfortably. The patient denies having any chest pain, shortness of breath or cough. No abdominal pain. Overall pain and discomfort to the left leg has slight decreased in intensity. PHYSICAL EXAMINATION: Blood pressure is 140/78 with a pulse of 98, temperature 98.3. He is 97% on room air. General description is a middle-aged male lying in bed in no distress. Respiratory system: Unlabored breathing, clear to auscultation anteriorly. Heart S1, S2. Regular rate and rhythm. Abdomen: Soft, no tenderness. Left leg swelling and redness has slightly decreased. LABS: No new labs have been obtained today. Culture has been negative so far. DIAGNOSTIC IMPRESSION AND PLAN: Patient with acute left lower extremity cellulitis in this patient with slow clinical improvement. In view of the extensive infection, patient will continue with cefazolin 3 grams q.8 hours. Local wound care is ordered and monitor clinical course closely. MMODL / IJN: [id number] /
[2021-05-31] MEDS: HYDROcodone/APAP 5-325MG 1 EACH TAB PO PRN ×2 (00:13→21:47)
[2021-05-31] MEDS: HEPARIN SODIUM,PORCINE/PF 5,000 UNIT/0.5 ML SYRINGE SQ SCH ×3 (00:13→15:43)
[2021-05-31] MEDS: ceFAZolin 3 GM in SODIUM CHLORIDE 0.9% 100 ML IVPB SCH ×3 (00:13→15:43)
[2021-05-31] MEDS: amLODIPine 10 MG TAB PO SCH (08:05)
[2021-05-31] MEDS: PANTOPRAZOLE 40 MG TABLET PO SCH (08:05)
--- NOTE | 2021-05-31 18:08 | PN ---
PROGRESS NOTE DATE OF SERVICE: 05/31/2021 This 50-year-old gentleman who was admitted with extensive cellulitis of the left leg also had possible sepsis. No chest pain. No palpitations. No fever. The cultures are negative so far. PHYSICAL EXAMINATION: Alert and oriented x3. Pulse is 92, blood pressure 140/72, respiration 17, temperature 98.2, pulse ox 93% on room air. skin is normal. HEENT: Conjunctivae normal. Oral mucosa moist. NECK: No jugular venous distention. No lymph node enlargement. CARDIOVASCULAR: S1, S2, muffled. No S3, no S4, RESPIRATORY: Diminished breath sounds at the bases. A few scattered rhonchi. ABDOMEN: Soft, obese. LEGS: Significant pain, swelling and erythema and exudation of the left leg present. NERVOUS SYSTEM: No focal deficits. LABS: WBC 9.8, hemoglobin 7.2. Other labs are noted. ASSESSMENT: 1. Extensive cellulitis of the left leg with possible early sepsis, present on admission. 2. Elevated D-dimer. 3. Acute hepatitis possibly secondary to sepsis. 4. Elevated CRP. 5. Mild anemia of chronic disease. 6. Super morbid obesity. 7. History of back pain. 8. Hypertension. 9. Aneurysmal ascending aorta 4.2 cm. 10.Hepatic steatosis. RECOMMENDATIONS: Recommend to continue current management and continue symptomatic treatment. Repeat labs tomorrow. Continue the antibiotics. Otherwise, closely follow with Infectious Disease regarding outpatient p.o. antibiotics versus intravenous antibiotics through a PICC line. Further recommendations to follow. The prognosis is guarded. MMODL / IJN: [id number] /
--- NOTE | 2021-05-31 22:50 | PN ---
PROGRESS NOTE DATE OF SERVICE: 05/31/2021 REASON FOR FOLLOWUP: Left lower extremity cellulitis. INTERVAL HISTORY: The patient is afebrile. The patient is feeling better, breathing comfortably. The patient denies having any chest pain or shortness of breath or cough. Pain to the left leg has slightly decreased and drainage has decreased. PHYSICAL EXAMINATION: Blood pressure 146/72 with a pulse of 92, temperature 98.8. He is 93% on room air. General description is a middle-aged male lying in bed in no distress. Respiratory system: Unlabored breathing. Clear to auscultation anteriorly. Heart S1, S2. Regular rate and rhythm. Abdomen soft, no tenderness. LABS: Hemoglobin 11.1, white count 8.38. No new labs have been done today. DIAGNOSTIC IMPRESSION AND PLAN: Patient with acute left lower extremity cellulitis in this patient who did have diffuse swelling and redness, likely streptococcal. Overall improvement with cefazolin. Local care to continue. Will repeat a CBC and tomorrow, reevaluate the wound. If overall improvement, may be able to switch him over to oral antibiotic on discharge. Continue with supportive care. MMODL / IJN: [id number] /
[2021-06-01] MEDS: HEPARIN SODIUM,PORCINE/PF 5,000 UNIT/0.5 ML SYRINGE SQ SCH ×4 (00:47→23:42)
[2021-06-01] MEDS: ceFAZolin 3 GM in SODIUM CHLORIDE 0.9% 100 ML IVPB SCH ×4 (00:48→23:42)
[2021-06-01] MEDS: HYDROcodone/APAP 5-325MG 1 EACH TAB PO PRN ×3 (08:50→23:59)
[2021-06-01] MEDS: amLODIPine 10 MG TAB PO SCH (08:51)
[2021-06-01] MEDS: PANTOPRAZOLE 40 MG TABLET PO SCH (08:51)
[2021-06-01 11:00] LABS: Basophils # (A) 0.02 X 10*3/uL (0.00-0.10); Basophils % (A) 0.2 %; Eosinophils # (A) 0.14 X 10*3/uL (0.04-0.35); Eosinophils % (A) 1.3 %; HGB 10.6 g/dL (13.0-17.0); Lymphocytes # (A) 1.61 X 10*3/uL (0.90-5.00); Lymphocytes % (A) 14.7 %; MCH 28.3 pg (27.0-32.0); MCHC 29.4 g/dL (32.0-37.0); Mean Platelet Volume 9.3 fL (9.5-12.2); Monocytes # (A) 0.47 X 10*3/uL (0.20-1.00); Monocytes % (A) 4.3 %; Neutrophils # (A) 8.46 X 10*3/uL (1.80-7.70); Neutrophils % (A) 77.2 %; Platelet Count 448 X 10*3/uL (140-440); RBC 3.75 X 10*6/uL (4.40-5.60); RDW 15.1 % (11.5-14.5); WBC 10.95 X 10*3/uL (4.50-10.00)
[2021-06-01 11:20] LABS: ALT 46 U/L (10-49); AST 29 U/L (14-35); African American GFR (CKD) 119.7 (60.0-200.0); Albumin 2.9 g/dL (3.8-4.9); Albumin/Globulin Ratio 0.77 (1.60-3.17); Alkaline Phosphatase 88 U/L (41-126); BUN/Creat Ratio 10.83 Ratio (12.00-20.00); Calcium 7.9 mg/dL (8.7-10.3); Carbon Dioxide 28.3 mmol/L (20.0-27.5); Chloride 96 mmol/L (96-109); Globulin 3.8 g/dL (1.6-3.3); Glucose 145 mg/dL (70-110); Non-African American GFR(CKD) 103.3 (60.0-200.0); Potassium 4.7 mmol/L (3.5-5.5); Sodium 134 mmol/L (135-145); Total Bilirubin <0.20 mg/dL (0.30-1.20); Total Protein 6.7 g/dL (6.2-8.2)
--- NOTE | 2021-06-01 18:12 | PN ---
PROGRESS NOTE DATE OF SERVICE: 06/01/2021 This is a 50-year-old gentleman who was admitted with extensive cellulitis on IV antibiotics. No chest pain. No palpitations. No fever. PHYSICAL EXAMINATION: Alert and oriented x3. Pulse is 89, blood pressure 150/70, respirations 16, temperature 98.2, pulse ox 90% on room air. HEENT: Conjunctivae normal. Oral mucosa moist. NECK: No jugular venous distention. No lymph node enlargement. CARDIOVASCULAR: S1, S2, muffled. No S3, no S4, RESPIRATORY: Diminished breath sounds at the bases. A few scattered rhonchi. ABDOMEN: Soft, nontender. LEGS: No edema, no swelling. NERVOUS SYSTEM: No focal deficits. LABS: WBC 10.95, hemoglobin 10.6 and sodium is 134. Other labs are noted. ASSESSMENT: 1. Extensive cellulitis of the left leg with possible early sepsis, present on admission, on IV antibiotics. 2. Negative cultures so far. 3. Elevated D-dimer. 4. Acute hepatitis possibly secondary to sepsis, present on admission, improved. 5. Elevated CRP. 6. Mild anemia of chronic disease. 7. Super morbid obesity. 8. History of back pain. 9. Hypertension. 10.Aneurysmal ascending aorta 4.2 cm. 11.Hepatic steatosis. RECOMMENDATIONS: Recommend to continue current management and symptomatic treatment. Otherwise, at this time I would recommend continue the antibiotics, continue the rest of medications and closely follow with Dr. Dent. Local treatment, local dressing and continue to monitor. Further recommendations to follow. MMODL / IJN: [id number] /
--- NOTE | 2021-06-01 22:24 | PN ---
PROGRESS NOTE DATE OF SERVICE: 06/01/2021 REASON FOR FOLLOWUP: Left lower extremity cellulitis. INTERVAL HISTORY: Patient is afebrile. The patient is breathing comfortably. The patient denies having any chest pain. No shortness of breath or cough. No nausea, vomiting, abdominal pain, or any worsening pain to the left leg area. PHYSICAL EXAMINATION: Blood pressure is 155/79 with pulse of 89, temperature 98.2. He is 92% on room air. General description is a middle-aged male lying in bed in no distress. Respiratory system: Unlabored breathing, clear to auscultation anteriorly. Heart S1, S2. Regular rate and rhythm. Abdomen soft, no tenderness. Left leg swelling and redness has slightly decreased. No drainage. LABS: Hemoglobin is 10, white count 10.95, creatinine is 0.8. DIAGNOSTIC IMPRESSION AND PLAN: Patient with extensive left lower extremity cellulitis with diffuse swelling and redness and superficial ulceration, likely streptococcal disease. Patient clinically responding to the cefazolin to continue another 24 hours before transition to oral antibiotics. Local care to continue with Aquacel Silver dressing and Liban wrap and continue supportive care. MMODL / IJN: [id number] /
[2021-06-02] MEDS: HEPARIN SODIUM,PORCINE/PF 5,000 UNIT/0.5 ML SYRINGE SQ SCH ×2 (07:45→17:02)
[2021-06-02] MEDS: ceFAZolin 3 GM in SODIUM CHLORIDE 0.9% 100 ML IVPB SCH ×2 (07:45→17:02)
[2021-06-02] MEDS: PANTOPRAZOLE 40 MG TABLET PO SCH (07:46)
[2021-06-02] MEDS: amLODIPine 10 MG TAB PO SCH (07:46)
[2021-06-02 13:35] VITALS: BP 150/83; PULSE 90; RESP 18; TEMP 98.9
--- NOTE | 2021-06-02 19:00 | PN ---
PROGRESS NOTE DATE OF SERVICE: 06/02/2021 REASON FOR FOLLOWUP: Left lower extremity cellulitis. INTERVAL HISTORY: The patient is afebrile. The patient is feeling better. Breathing comfortably. Overall, left leg pain, swelling and redness slightly decreased. No chest pain, shortness of breath or cough. No abdominal pain, no diarrhea. PHYSICAL EXAMINATION: Blood pressure 150/83 with a pulse of 90, temperature 98.9. He is 95% on room air. General description is a middle-aged male lying in bed in no distress. Respiratory system: Unlabored breathing, clear to auscultation anteriorly. Heart S1, S2. Regular rate and rhythm. Abdomen soft, no tenderness. Left leg swelling and redness has decreased. LABS: No new labs have been obtained today. Blood culture negative. DIAGNOSTIC IMPRESSION AND PLAN: Patient with left lower extremity cellulitis, extensive, with overall improvement with IV cefazolin. Finish therapy with oral Keflex 500 mg q.6 hours for 10 days. Prescription called to pharmacy. Local care with dry Aquacel dressing and Liban wrap. Advised to follow up [facility]. MMODL / IJN: [id number] /
--- NOTE | 2021-06-02 21:37 | DS ---
DISCHARGE SUMMARY FINAL DIAGNOSES: 1. Extensive cellulitis of the left leg with possible early sepsis, present on admission, on IV antibiotics and negative cultures so far. 2. Elevated D-dimer. 3. Acute hepatitis possibly secondary to sepsis present on admission improved. 4. Elevated CRP. 5. Mild anemia, chronic. 6. Super morbid obesity. 7. History of back pain. 8. Hypertension. 9. Aneurysm ascending aorta 4 point cm. DISCHARGE DISPOSITION: The patient will be discharged in stable condition with guarded prognosis. Discharge cleared by Dr. Dent. HISTORY OF PRESENT ILLNESS: This 50-year-old gentleman with a past medical history of multiple medical problems including significant cellulitis. Cultures negative. Treated empirically with antibiotics. Patient improved significantly. Dr. Dent cleared the patient for discharge. Local treatment advised. On exam, vitals signs stable. Cardiovascular: S1, S2. Abdomen soft. Nervous system: Left leg cellulitis present. DISCHARGE ADVICE AND MEDICATIONS: 1. Diet is cardiac diet. 2. Activity limited until follow up. 3. Keflex 500 mg p.o. q.6 for 10 days. 4. Norvasc 10 mg daily. 5. Tylenol p.r.n. 6. Follow up with Dr. Davis in 1 week. 7. Follow up with Dr. Dent as recommended. Once again, the patient discharged in stable condition with guarded prognosis. MMODL / IJN: [id number] / MTDD
== END 2021-06-02 17:41 | disposition home or self-care (01) | DRG 872 ==
LOC: EC 09:40 → 5NMEDONC 12:42 → 4SSUR 20:10
PROVIDERS: ADMIT Hospitalist; ATTEND Hospitalist
DX: A41.9 Sepsis, unspecified organism (principal); L03.116 Cellulitis of left lower limb; B17.9 Acute viral hepatitis, unspecified; Z68.44 Body mass index [BMI] 60.0-69.9, adult; D63.8 Anemia in other chronic diseases classified elsewhere; E66.01 Morbid (severe) obesity due to excess calories; I10 Essential (primary) hypertension; K76.0 Fatty (change of) liver, not elsewhere classified; Z20.822 Contact with and (suspected) exposure to COVID-19; Z82.49 Family history of ischemic heart disease and other diseases of the circulatory system; I71.2 Thoracic aortic aneurysm, without rupture
CPT/HCPCS: 36415; 71275; 80053; 80306; 81001; 83605; 85025; 85379; 86140; 87040; 87635; 93970; 96361; 96365; 99285